=== PATIENT | male | born 1970 | race Caucasian/White ===

== ENCOUNTER 2018-12-23 06:08 | Inpatient (IN) | payer BC ==
[~2018-12-23] VITALS: Ht 175.3 cm; Wt 134.7 kg
[~2018-12-23 06:08] MED LIST: AMLO-150 PO
[2018-12-23] MEDS ORDERED: LACTATED RINGERS 1,000 ML IV SCH (06:48)
[2018-12-23 06:51] VITALS: BP 146/95
[2018-12-23] MEDS ORDERED: FENTANYL PF 100 MCG/2ML ONE ×2 (07:28→08:35)
[2018-12-23] MEDS ORDERED: MIDAZOLAM 1 MG/ML, 2ML ONE (07:28)
[2018-12-23] MEDS ORDERED: PROPOFOL 10 MG/ML, 20ML ONE (08:06)
[2018-12-23] MEDS ORDERED: CEFAZOLIN 1,000 MG ONE (08:06)
[2018-12-23] MEDS ORDERED: BUPIVACAINE/PF 0.5% ONE (08:06)
[2018-12-23] MEDS ORDERED: DEXAMETHASONE 4 MG/ML, 1ML ONE (08:06)
[2018-12-23] MEDS ORDERED: ONDANSETRON 2MG/ML, 2ML ONE (08:06)
[2018-12-23] MEDS ORDERED: OXYcodone 5 MG/5 ML ORAL.SOL UDC PO PRN (08:30)
[2018-12-23] MEDS ORDERED: HYDROmorphone 2 MG/ML, 1ML IVPush PRN (08:30)
[2018-12-23] MEDS ORDERED: MEPERIDINE/PF 25MG/0.5ML IVPush PRN (08:30)
[2018-12-23] MEDS ORDERED: ALBUTEROL/IPRATROPIUM 2.5MG/0.5MG, 3 ML NPPB PRN (08:30)
[2018-12-23] MEDS ORDERED: METOPROLOL 1 MG/ML, 5ML IV PRN (08:30)
[2018-12-23] MEDS ORDERED: ACETAMINOPHEN 325 MG TABLET PO PRN ×2 (08:30→15:30)
[2018-12-23] MEDS ORDERED: hydrALAzine 20 MG/ML, 1ML IV PRN (08:30)
[2018-12-23] MEDS ORDERED: PROMETHAZINE 25 MG/ML, 1ML IV PRN (08:30)
[2018-12-23] MEDS ORDERED: SCOPOLAMINE PATCH, 1.5MG PATCH.TD72 TD PRN (08:30)
[2018-12-23] MEDS ORDERED: ONDANSETRON 2MG/ML, 2ML IV PRN (08:30)
[2018-12-23] MEDS ORDERED: MIDAZOLAM 1 MG/ML, 2ML IV PRN (08:30)
[2018-12-23] MEDS ORDERED: ACETAMINOPHEN 650 MG/20.3 ML UDC ONE (08:35)
[2018-12-23] MEDS ORDERED: OXYcodone 5 MG/5 ML ORAL.SOL UDC ONE (08:35)
[2018-12-23] MEDS: FENTANYL PF 100 MCG/2ML IV PRN ×3 (08:37→09:05)
[2018-12-23] MEDS ORDERED: ONDANSETRON 2MG/ML, 2ML IVPush PRN (15:30)
[2018-12-23] MEDS ORDERED: LABETALOL 5MG/ML, 20ML IVPush PRN (15:30)
[2018-12-23] MEDS ORDERED: morphine SULFATE 10 MG/ML, 1ML IVPush PRN (15:30)
[2018-12-23] MEDS ORDERED: HYDROcodone/APAP 5/325 TABLET PO PRN (15:30)
[2018-12-23 16:03] LABS: TROPONIN I < 0.015 ng/mL (0.000-0.045)
[2018-12-23 16:34] VITALS: BP 112/71
[2018-12-23] MEDS ORDERED: ENOXAPARIN 40 MG/0.4 ML SQ SCH (18:00)
[2018-12-23] MEDS ORDERED: CEPHALEXIN 500 MG CAPSULE ONE (18:54)
[2018-12-23] MEDS ORDERED: CEPHALEXIN 250 MG/5 ML, ORAL SUSP PO SCH (19:00)
[2018-12-23] MEDS: CEPHALEXIN 500 MG CAPSULE PO SCH (19:01)
[2018-12-23 19:19] VITALS: BP 132/80
[2018-12-23] MEDS ORDERED: CEPHALEXIN 500 MG CAPSULE PO SCH ×2 (21:00)
[2018-12-23] MEDS ORDERED: GABAPENTIN 300 MG CAPSULE PO SCH (21:00)
[2018-12-23 22:00] LABS: TROPONIN I < 0.015 ng/mL (0.000-0.045)
[2018-12-24 00:29] VITALS: BP 130/81
[2018-12-24] MEDS: CEPHALEXIN 500 MG CAPSULE PO SCH ×3 (01:22→14:13)
[2018-12-24 04:27] LABS: BASOPHILS # (AUTO) 0.02 x10^3/uL (0-0.1); BASOPHILS % (AUTO) 0 % (0-1); EOSINOPHILS # (AUTO) 0.19 x10^3/uL (0-0.4); EOSINOPHILS % (AUTO) 2 % (1-7); LYMPHOCYTES # (AUTO) 2.25 x10^3/uL (1-3.4); LYMPHOCYTES % (AUTO) 24 % (22-44); MD NO; MEAN CORPUSCULAR HEMOGLOBIN 29.1 pg (27.5-34.5); MEAN CORPUSCULAR HGB CONC 33.3 g/dL (33.2-36.2); MEAN CORPUSCULAR VOLUME 87.4 fL (81-97); MEAN PLATELET VOLUME 9.1 fL (7.4-10.4); MONOCYTES # (AUTO) 0.74 x10^3/uL (0.2-0.8); MONOCYTES % (AUTO) 8 % (2-9); NEUTROPHILS # (AUTO) 6.27 x10^3/uL (1.8-6.8); NEUTROPHILS % (AUTO) 66 % (42-75); PLATELET COUNT 194 x10^3/uL (130-400); RED BLOOD COUNT 5.49 x10^6/uL (4.38-5.82); RED CELL DISTRIBUTION WIDTH 14.3 % (9.4-14.8)
[2018-12-24 04:36] LABS: ALBUMIN 3.8 g/dL (3.4-5.0); ANION GAP 4 mmol/L (5-15); CALCIUM 9.5 mg/dL (8.5-10.1); CHLORIDE 106 mmol/L (98-107)
[2018-12-24 04:43] LABS: ALANINE AMINOTRANSFERASE 48 U/L (12-78); ALKALINE PHOSPHATASE 78 U/L (45-117); BILIRUBIN,TOTAL 0.8 mg/dL (0.2-1.0); CREATININE 1.06 mg/dL (0.7-1.3); TOTAL PROTEIN 6.8 g/dL (6.4-8.2); TROPONIN I < 0.015 ng/mL (0.000-0.045)
[2018-12-24 07:43] VITALS: BP 136/78
[2018-12-24 07:44] VITALS: BP 130/74
[2018-12-24] MEDS ORDERED: ACET325T14 PO (10:50)
[2018-12-24] MEDS ORDERED: HYDR25TA6 PO (10:50)
[2018-12-24 14:00] VITALS: BP 122/77
[2018-12-24] MEDS ORDERED: HYDR50CA PO (15:20)
== END 2018-12-24 15:38 | disposition home or self-care (01) | DRG 492 ==
LOC: OUT 06:08 → ORIP 15:05 → 4EST 16:05
PROVIDERS: ADMIT Orthopaedic Surgery; ATTEND Orthopaedic Surgery
PROC: 3E0T3BZ Introduction of Anesthetic Agent into Peripheral Nerves and Plexi, Percutaneous Approach (ICD-10-PCS; 2018-12-23)
PROC: 0SPG04Z Removal of Internal Fixation Device from Left Ankle Joint, Open Approach (ICD-10-PCS; principal; 2018-12-23 08:00)
DX: T84.84XA Pain due to internal orthopedic prosthetic devices, implants and grafts, initial encounter (principal); J96.01 Acute respiratory failure with hypoxia; Z68.41 Body mass index [BMI] 40.0-44.9, adult; Y83.8 Other surgical procedures as the cause of abnormal reaction of the patient, or of later complication, without mention of misadventure at the time of the procedure; E11.9 Type 2 diabetes mellitus without complications; E66.01 Morbid (severe) obesity due to excess calories; E78.5 Hyperlipidemia, unspecified; G47.33 Obstructive sleep apnea (adult) (pediatric); I10 Essential (primary) hypertension; T88.59XA Other complications of anesthesia, initial encounter; Y92.239 Unspecified place in hospital as the place of occurrence of the external cause; K21.9 Gastro-esophageal reflux disease without esophagitis; Z87.81 Personal history of (healed) traumatic fracture; Y92.89 Other specified places as the place of occurrence of the external cause; Z71.3 Dietary counseling and surveillance
CPT/HCPCS: 36415; 36600; 71045; 80053; 82803; 83735; 83880; 84443; 84484; 85025; 85379; 93005; 94640; G0378; J0690; J1100; J1650; J2250; J2405; J2704; J3010; J3490; J7120

== ENCOUNTER → 2019-08-14 | Outpatient (CLI) | payer BC ==
[~2019-08-14] MED LIST changes: +ACET325T14 PO; +CHOL200024 PO; +HYDR25TA6 PO; +HYDR50CA PO; +LOSA50TA14 PO; +MAGN400T9 PO; +ROSU10TA2 PO; +VIT1CAPS16 PO
[2019-08-14 15:52] LABS: ALBUMIN 4.1 g/dL (3.4-5.0); CALCIUM 10.6 mg/dL (8.5-10.1)
[2019-08-14 15:57] LABS: ALANINE AMINOTRANSFERASE 61 U/L (12-78); ALKALINE PHOSPHATASE 70 U/L (45-117); BILIRUBIN,TOTAL 0.8 mg/dL (0.2-1.0); CREATININE 0.93 mg/dL (0.7-1.3); TOTAL PROTEIN 7.3 g/dL (6.4-8.2)
[2019-08-14 15:59] LABS: ANION GAP 6 mmol/L (5-15); CHLORIDE 109 mmol/L (98-107)
== END | disposition home or self-care (01) ==
LOC: STAR 14:36
PROVIDERS: ATTEND Surgery
DX: Z01.818 Encounter for other preprocedural examination (principal)
CPT/HCPCS: 36415; 80053

== ENCOUNTER 2019-08-21 06:21 | Day surgery (SDC) | payer BC ==
[~2019-08-21] VITALS: Ht 175.3 cm; Wt 132.6 kg
[2019-08-21 07:09] VITALS: BP 122/83
[2019-08-21] MEDS ORDERED: LACTATED RINGERS 1,000 ML IV SCH (07:11)
[2019-08-21] MEDS ORDERED: MIDAZOLAM 1 MG/ML, 2ML ONE (07:15)
[2019-08-21] MEDS ORDERED: FENTANYL PF 100 MCG/2ML ONE ×3 (07:15→09:15)
[2019-08-21] MEDS ORDERED: ACETAMINOPHEN 500 MG TABLET PO ONE (07:30)
[2019-08-21] MEDS ORDERED: CEFAZOLIN 1,000 MG ONE (07:48)
[2019-08-21] MEDS ORDERED: ONDANSETRON 2MG/ML, 2ML ONE (07:48)
[2019-08-21] MEDS ORDERED: DEXAMETHASONE 4 MG/ML, 1ML ONE (07:48)
[2019-08-21] MEDS ORDERED: ROCURONIUM 10 MG/ML,10ML ONE (07:48)
[2019-08-21] MEDS ORDERED: PROPOFOL 10 MG/ML, 20ML ONE (07:48)
[2019-08-21] MEDS ORDERED: SUCCINYLCHOLINE 20 MG/ML, 10ML ONE (07:48)
[2019-08-21] MEDS ORDERED: METOCLOPRAMIDE 5 MG/ML, 2ML IV PRN (08:30)
[2019-08-21] MEDS ORDERED: LORazepam 2 MG/ML, 1ML IVPush PRN (08:30)
[2019-08-21] MEDS ORDERED: ONDANSETRON 2MG/ML, 2ML IV PRN (08:30)
[2019-08-21] MEDS ORDERED: MEPERIDINE/PF 25MG/ML,1ML IVPush PRN (08:30)
[2019-08-21] MEDS ORDERED: HYDROmorphone 2 MG/ML, 1ML IVPush PRN (08:30)
[2019-08-21] MEDS ORDERED: FENTANYL PF 100 MCG/2ML IV PRN (08:30)
[2019-08-21] MEDS ORDERED: LABETALOL 5MG/ML, 20ML IV PRN (08:30)
[2019-08-21] MEDS ORDERED: hydrALAzine 20 MG/ML, 1ML IV PRN (08:30)
[2019-08-21 09:07] LABS: 10MIN %DROP IOPTH 87 %; 5MIN %DROP IOPTH 74 %; IOPTH BASELINE 519 pg/mL; SAMPLE 5 %DROP IOPTH 91 %
[2019-08-21] MEDS ORDERED: OXYcodone 5 MG/5 ML ORAL.SOL UDC ONE (09:16)
[2019-08-21] MEDS: OXYcodone 5 MG/5 ML ORAL.SOL UDC PO PRN ×2 (09:17→10:37)
[2019-08-21] MEDS ORDERED: FLU VACC QS2019-20 36MOS UP/PF 0.5 ML IM-VACC ONE (11:00)
== END 2019-08-21 11:25 | disposition home or self-care (01) ==
LOC: OUT 06:21
PROVIDERS: ATTEND Surgery
DX: E21.0 Primary hyperparathyroidism (principal); D35.1 Benign neoplasm of parathyroid gland; I10 Essential (primary) hypertension; G47.33 Obstructive sleep apnea (adult) (pediatric); E03.9 Hypothyroidism, unspecified; E66.01 Morbid (severe) obesity due to excess calories; Z68.41 Body mass index [BMI] 40.0-44.9, adult; Z87.442 Personal history of urinary calculi; Z79.899 Other long term (current) drug therapy; Z82.0 Family history of epilepsy and other diseases of the nervous system; Z83.3 Family history of diabetes mellitus
CPT/HCPCS: 36415; 60500; 83970; 88305; 88331; C1760; J0330; J0690; J1100; J2250; J2405; J2704; J3010; J7120